=== PATIENT | female | born 1985 | race African-American/Black ===

== ENCOUNTER 2023-10-16 12:26 | Emergency (ER) | payer MEDICAID, OTHER ==
[~2023-10-16] VITALS: Ht 157.5 cm; Wt 97.5 kg
[~2023-10-16 12:26] MED LIST: IBUP-1636
[2023-10-16 13:05] VITALS: TEMP 98.3; O2SAT 100
[2023-10-16 13:05] LABS: BASOPHILS % 0.4 % (0.0-2.0); DIFFERENTIAL COMMENT 0; EOSINOPHILS % 1.6 % (0.0-5.0); HEMATOCRIT. 40.7 % (36.0-48.0); HEMOGLOBIN. 12.9 g/dL (12.0-16.0); LYMPHOCYTES % 55.2 % (20.0-50.0); MEAN CORPUSCULAR HEMOGLOBIN 31.9 pg (28.0-32.0); MEAN CORPUSCULAR HGB CONC 31.8 g/dL (31.0-37.0); MEAN CORPUSCULAR VOLUME 100.1 fL (81.0-99.0); MEAN PLATELET VOLUME 8.2 fl (7.4-10.4); MONOCYTES % 10.1 % (2.0-8.0); NEUTROPHILS % 32.7 % (40.0-76.0); PLATELET 217 x1000/uL (130-400); RED BLOOD CELL COUNT 4.06 mill/uL (4.2-5.4); WHITE BLOOD COUNT 4.3 x1000/uL (4.5-11.0)
[2023-10-16 13:14] LABS: HCG SCREEN NEGATIVE
[2023-10-16 13:18] LABS: CHLORIDE 108 mEq/L (98-107); SODIUM 138 mEq/L (136-145)
[2023-10-16 13:19] LABS: CALCIUM 9.4 mg/dL (8.7-10.4); CARBON DIOXIDE 27 mEq/L (21-32)
[2023-10-16 13:24] LABS: CREATININE 0.9 mg/dL (0.6-1.0); GLUCOSE 91 mg/dL (70-105); UREA NITROGEN BLOOD 6 mg/dL (9-23)
[2023-10-16 13:26] LABS: ALANINE AMINOTRANSFERASE 14 IU/L (10-49); ALBUMIN 4.3 g/dL (3.2-4.8); ASPARTATE AMINOTRANSFERASE 45 IU/L (<34)
[2023-10-16 13:27] LABS: BILIRUBIN TOTAL 0.9 mg/dL (0.1-1.0); PROTEIN TOTAL 6.7 g/dL (6.0-8.3)
[2023-10-16 14:38] LABS: CLARITY URINE CLEAR (CLEAR); COLOR URINE YELLOW (YELLOW); GLUCOSE URINE NEGATIVE (NEGATIVE); KETONES URINE NEGATIVE (NEGATIVE); LEUKOCYTE ESTERASE URINE NEGATIVE (NEGATIVE); NITRITE URINE NEGATIVE (NEGATIVE); OCCULT BLOOD URINE NEGATIVE (NEGATIVE); PROTEIN URINE NEGATIVE (NEGATIVE)
[2023-10-16] MEDS: DEXAMETHASONE 10 MG/ML VIAL IM ONE (14:56)
[2023-10-16] MEDS: KETOROLAC 15MG/ML VIAL IM ONE (14:56)
[2023-10-16] MEDS: METOCLOPRAMIDE HCL 10MG/2ML VIAL IM ONE (14:56)
[2023-10-16] MEDS ORDERED: NAPR-681 PO (17:41)
[2023-10-16 18:05] VITALS: BP 118/70; PULSE 15; RESP 12
== END 2023-10-16 18:05 | disposition home or self-care (01) ==
LOC: ER 12:26
DX: S00.93XA Contusion of unspecified part of head, initial encounter (principal); Z87.19 Personal history of other diseases of the digestive system; X58.XXXA Exposure to other specified factors, initial encounter; Y93.89 Activity, other specified; Y92.89 Other specified places as the place of occurrence of the external cause; Y99.8 Other external cause status
CPT/HCPCS: 99285; 70450; 80053; 81003; 84703; 85025; 36415; 72125; 96372; J1100; J1885; J2765